=== PATIENT | female | born 1965 | race Caucasian/White ===

== ENCOUNTER 2022-04-03 15:17 | Emergency (ER) | payer SELFPAY ==
[2022-04-03] MEDS ORDERED: methylPREDNISolone Sod Succ/PF 125 MG/2 ML VIAL ONE (15:54)
[2022-04-03 16:50] LABS: SARS-CoV-2 NAA Rapid Test Not Detected (NotDetected)
== END 2022-04-03 18:06 | disposition home or self-care (01) ==
LOC: ERS 15:17
DX: J10.1 Influenza due to other identified influenza virus with other respiratory manifestations (principal); J20.9 Acute bronchitis, unspecified; J44.9 Chronic obstructive pulmonary disease, unspecified; F17.210 Nicotine dependence, cigarettes, uncomplicated; Z20.822 Contact with and (suspected) exposure to COVID-19
CPT/HCPCS: 71045; 96372; J2930; J7620

== ENCOUNTER 2022-08-16 09:27 | Outpatient (CLI) | payer OTHER | END 2022-08-16 09:28 | disposition home or self-care (01) | LOC: ULT 09:27 | PROVIDERS: ATTEND Internal Medicine Gastroenterology | DX: B19.20 Unspecified viral hepatitis C without hepatic coma (principal); K76.9 Liver disease, unspecified | CPT/HCPCS: 76700 ==

== ENCOUNTER 2023-04-05 13:12 | Emergency (ER) | payer OTHER | END 2023-04-05 15:17 | disposition home or self-care (01) | LOC: ERS 13:12 | DX: N61.0 Mastitis without abscess (principal); J44.9 Chronic obstructive pulmonary disease, unspecified; F17.210 Nicotine dependence, cigarettes, uncomplicated | CPT/HCPCS: 99283 ==